=== PATIENT | female | born 1955 | race Caucasian/White ===

== ENCOUNTER → 2021-03-04 12:18 | Outpatient (CLI) | payer MEDICARE, SELFPAY ==
--- NOTE | ~2021-03-04 | XR_ITS ---
EXAMINATION: XR knee LT 3V DATE: 03/04/2021 12:35 INDICATION: Left knee pain. TECHNIQUE: 3 views of left knee standing were obtained. COMPARISON: None. FINDINGS: Bone alignment is normal. No fracture. Joint spaces are well maintained. There is no knee j oint effusion. IMPRESSION: 1. Normal left knee. Reviewed, dictated and finalized at location A. IMPRESSION: 1. Normal left knee.
== END ==
PROVIDERS: PCP Family Medicine; Visit Provider Nurse Practitioner Family
DX: M25.562 Pain in left knee (principal)
CPT/HCPCS: 73562

== ENCOUNTER → 2021-03-23 12:25 | Outpatient (CLI) | payer MEDICARE, SELFPAY ==
--- NOTE | ~2021-03-23 | XR_ITS ---
XR foot RT min 3V, XR ankle RT min 3V 03/23/2021 13:20 Indication: Right foot and ankle pain after injury Procedure: 4 views right foot and 4 views right ankle Comparison: No prior studies for comparison. Findings: There is a avulsion fracture distal tip of the fibula with adjacent soft tissue swelling. N o other fractures. No foreign bodies. Ankle mortise intact. Talar dome within normal limits. Impression: 1: Avulsion fracture distal tip of the fibula. Reviewed, dictated and finalized at location B. Impression: 1: Avulsion fracture distal tip of the fibula. Impression: 1: Avulsion fracture distal tip of the fibula.
== END ==
PROVIDERS: Visit Provider Family Medicine
DX: S82.831A Other fracture of upper and lower end of right fibula, initial encounter for closed fracture (principal); X58.XXXA Exposure to other specified factors, initial encounter
CPT/HCPCS: 73610; 73630

== ENCOUNTER → 2021-06-02 13:42 | Outpatient (CLI) | payer MEDICARE, SELFPAY ==
--- NOTE | ~2021-06-02 | CT_ITS ---
EXAMINATION:CT lung screening DATE: 06/02/2021 14:01 INDICATION: Personal history of tobacco dependence. Smoker who quit 5 years ago with 40 pack year his tory. TECHNIQUE: Computed tomography (CT) of the chest was performed without intravenous contrast. Automate d exposure control and iterative reconstruction technique were employed. The dose-length product (DLP ) was 144.07 mGy-cm. COMPARISON: Chest CT 08/16/2010 FINDINGS: There is mild emphysema. There is mild symmetric scarring at the lung apices. There is a st able 3 mm nodule in right upper lobe. There is mild atelectasis bilaterally. There are peripheral libby undglass opacities in anterobasal segment right lower lobe. There is a 4 mm nodule in left upper lobe . No pleural effusion. The heart size is normal. There are coronary artery calcifications. No pericar dial effusion. There is mild thoracic spondylosis. IMPRESSION: 1. Lung-RADS category 2: Benign appearance or behavior. Continue annual screening with noncontrast lo w-dose chest CT in 12 months. Reviewed, dictated and finalized at location A. IMPRESSION: 1. Lung-RADS category 2: Benign appearance or behavior. Continue annual screeni ng with noncontrast low-dose chest CT in 12 months.
== END ==
PROVIDERS: PCP Family Medicine; Visit Provider Family Medicine
DX: Z12.2 Encounter for screening for malignant neoplasm of respiratory organs (principal); Z87.891 Personal history of nicotine dependence
CPT/HCPCS: 71271

== ENCOUNTER → 2021-08-17 10:46 | Outpatient (CLI) | payer MEDICARE, SELFPAY ==
--- NOTE | ~2021-08-17 | MM_ITS ---
EXAMINATION: MM screening [facility] BI w maday HISTORY: Screening mammogram TECHNIQUE: Craniocaudal and mediolateral oblique 3-D tomosynthesis images were obtained and synthetic 2-D images were generated. CAD analysis was submitted and interpreted. COMPARISON: 08/02/2013, 04/12/2012 BREAST PARENCHYMAL COMPOSITION: There are scattered areas of fibroglandular density. FINDINGS: RIGHT BREAST: There is no evidence of suspicious mass, calcification, or architectural distortion to suggest malignancy. There has been no significant interval change. LEFT BREAST: An asymmetry is present in the anterior third of the inner breast 3.5 cm from the nipple on the craniocaudal view IMPRESSION: 1. Left breast asymmetry on the craniocaudal view 2. Additional mammographic views and possible breast ultrasound are recommended. BI-RADS Category 0: Incomplete: Needs additional imaging evaluation. Reviewed, dictated and finalized at location A. EMS SUPPORT SPECIALIST IMPRESSION: 1. Left breast asymmetry on the craniocaudal view 2. Additional mammographic views and possible breast ultrasound are recommended . BI-RADS Category 0: Incomplete: Needs additional imaging evaluation.
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
== END ==
PROVIDERS: PCP Family Medicine; Visit Provider Family Medicine
DX: Z12.31 Encounter for screening mammogram for malignant neoplasm of breast (principal); Z78.0 Asymptomatic menopausal state; R92.8 Other abnormal and inconclusive findings on diagnostic imaging of breast
CPT/HCPCS: 77063; 77067; 77080

== ENCOUNTER → 2021-09-15 08:49 | Outpatient (CLI) | payer MEDICARE, SELFPAY ==
--- NOTE | ~2021-09-15 | MM_ITS ---
EXAMINATION: MM diagnostic sukhdev LT w maday HISTORY: Left breast asymmetry reported on 08/17/2021 screening mammogram craniocaudal view TECHNIQUE: Additional 3-D tomosynthesis images of the left breast were performed and synthetic 2-D im ages were generated. Rolled medial and rolled lateral craniocaudal views of left breast. CAD analysis was submitted and interpreted. COMPARISON: 08/17/2021, 08/02/2013 bilateral screening mammogram examinations FINDINGS: The area of asymmetry reported in the anterior inner left breast on 08/17/2021 screening ma mmogram is not confirmed on these subsequent views, consistent with normal fibroglandular stroma. IMPRESSION: 1. No mammographic evidence of malignancy 2. Routine mammographic screening is recommended. BI-RADS Category 1: Negative Reviewed, dictated and finalized at location A. CREW MEMBER
== END ==
PROVIDERS: PCP Family Medicine; Visit Provider Nurse Practitioner Family
DX: R92.8 Other abnormal and inconclusive findings on diagnostic imaging of breast (principal)
CPT/HCPCS: 77061; 77065; G0279

== ENCOUNTER 2021-12-16 13:50 | Outpatient (CLI) | payer MEDICARE, SELFPAY ==
--- NOTE | ~2021-12-16 | US_ITS ---
US arterial ankle brachial ind INDICATION: Peripheral vascular disease TECHNIQUE: Segmental pressures and plethysmographic and Doppler waveforms of the brachial and lower e xtremity arteries were obtained. COMPARISON: None. FINDINGS: Right and left brachial artery pressures of 105 mm Hg and 101 mm Hg, respectively, are concordant (no rmal difference <= 30 mmHg). The right ankle-brachial index (ERIC) is 1.13 (normal >= 0.9-1.0). The right great toe-brachial index (TBI) is 0.92 (normal >= 0.60). The left ERIC is 1.12. The left TBI is 0.59. IMPRESSION: 1. Normal bilateral ankle-brachial indices. Reviewed, dictated and finalized at location B.
== END 2021-12-16 13:51 | disposition home or self-care (01) ==
LOC: ANHIMG 13:53
PROVIDERS: PCP Family Medicine; Visit Provider Family Medicine
DX: I73.9 Peripheral vascular disease, unspecified (principal)
CPT/HCPCS: 93922

== ENCOUNTER → 2022-08-22 12:41 | Outpatient (CLI) | payer MEDICARE, SELFPAY ==
--- NOTE | ~2022-08-22 | CT_ITS ---
EXAMINATION: CT lung screening DATE: 08/22/2022 12:56 INDICATION: Lung cancer screening. TECHNIQUE: Computed tomography (CT) of the chest was performed without intravenous contrast. The dose -length product was 118.23 mGy-cm. Automated exposure control and iterative reconstruction technique were employed. COMPARISON: CT dated 06/02/2021 FINDINGS: There is atherosclerosis of the aorta. No evidence for aneurysm. There is atherosclerosis o f the coronary arteries. No significant pleural or pericardial effusion. No thoracic lymphadenopathy. The upper abdomen is unremarkable. There is apical pleural thickening/scarring. There is mild emphys cynthia. There are right upper lobe nodules which are stable, largest measuring 4 mm. There is a stable 4 mm left upper lobe nodule, image 27. There is a 3 mm right lower lobe nodule, image 98, unchanged. N o endobronchial lesions. No peripheral airspace consolidation. No pneumothorax. No endobronchial lesi ons. No acute osseous abnormality. IMPRESSION: 1. Lung-RADS category 2: Benign appearance or behavior. Continue annual screening with noncontrast lo w-dose chest CT in 12 months. Reviewed, dictated and finalized at location B. WASHER PREPARER IMPRESSION: 1. Lung-RADS category 2: Benign appearance or behavior. Continue annual screeni ng with noncontrast low-dose chest CT in 12 months.
== END ==
PROVIDERS: PCP Family Medicine; Visit Provider Family Medicine
DX: Z12.2 Encounter for screening for malignant neoplasm of respiratory organs (principal); Z87.891 Personal history of nicotine dependence
CPT/HCPCS: 71271

== ENCOUNTER → 2023-03-08 16:01 | Outpatient (CLI) | payer MEDICARE, SELFPAY ==
--- NOTE | ~2023-03-08 | MM_ITS ---
EXAMINATION: MM screening [facility] BI w maday HISTORY: Screening mammogram TECHNIQUE: Craniocaudal and mediolateral oblique 3-D tomosynthesis images were obtained and synthetic 2-D images were generated. CAD analysis was submitted and interpreted. COMPARISON: 09/15/2021, 08/17/2021, 08/02/2013 BREAST PARENCHYMAL COMPOSITION:There are scattered areas of fibroglandular density. FINDINGS: No suspicious mass, calcification, or architectural distortion are identified in either kathleen ast to suggest malignancy. There has been no suspicious interval change. IMPRESSION: No mammographic evidence of malignancy. Recommend routine screening mammography in one year. BI-RADS Category 1: Negative Reviewed, dictated and finalized at location .
== END ==
PROVIDERS: PCP Family Medicine; Visit Provider Family Medicine
DX: Z12.31 Encounter for screening mammogram for malignant neoplasm of breast (principal)
CPT/HCPCS: 77063; 77067

== ENCOUNTER 2023-04-21 11:20 | Outpatient (CLI) | payer MEDICARE, SELFPAY ==
[2023-04-21 12:29] LABS: Thyroid Stimulating Hormone 0.945 uIU/mL (0.465-4.680)
== END 2023-04-21 11:21 | disposition home or self-care (01) ==
PROVIDERS: PCP Family Medicine; Visit Provider Nurse Practitioner Family
DX: R53.83 Other fatigue (principal)
CPT/HCPCS: 36415; 82607; 84443

== ENCOUNTER 2023-05-24 08:14 | Outpatient (CLI) | payer MEDICARE, SELFPAY ==
--- NOTE | 2023-06-08 19:43 | WPDHOMESLEEP ---
Sleep Study - Home Unattended Date of Study: 05/24/23 Ordering Provider: Donte Walton APRN Interpreting Provider: Hansa Lucas MD Home Sleep Study Type: Watch PAT Height: 1.7 m Weight: 79.832 kg Body Mass Index: 27.6 Neck Circumference (inches): 14.5 [place]: 3 Reason for Sleep Study Witnessed apnea, history of obstructive sleep apnea on CPAP, has not used it recently; now 177 lb * 12/09/2002 ?Basic sleep study; sleep efficiency 97%; sleep latency 2.5 minutes; REM latency 93 minutes; Arousal index of 12.5. Findings of upper airway resistance syndrome. A CPAP titration is recommended. * 03/31/2003 ? titration to CPAP [id number]; wt was 168lbs. Sleep History Brenda Shah is a 68-year-old female with complaints of loud snoring. She has hypertension, diastolic dysfunction, depression and acid reflux. She has a history of obstructive sleep apnea, had a titration in 2002 with an optimal pressure of 10 cm. Her weight was 168 lb now 177 lb.. She does not awaken from sleep feeling short of breath. She rarely awakens at night with heartburn, belching or coughing. She rarely snores but when she does snore, others frequently complain about it. she occasionally has difficulty sleeping with a cold. She does not wake up gasping for breath at night. She frequently has breathing problems at night observed by others. She occasionally sweats excessively at night. She does not notice her heart pounding or beating irregularly at night. She occasionally falls asleep during the day, never falls asleep involuntarily or while driving. She does not have loss of muscle tone with strong emotion. She occasionally has daytime difficulties due to excessive sleepiness. She does not feel paralyzed on waking or falling asleep. She frequently has vivid dreamlike scenes upon awakening or falling asleep. She does not feel afraid to go to sleep. She occasionally has nightmares. She occasionally remembers her dreams. She occasionally has racing thoughts. She occasionally feels sad, depressed, anxious. She rarely has muscular tension. She rarely notices parts of her body jerking. She occasionally kicks at night. She denies having feelings of aching or crawling feelings in her legs. She does not have any kind of leg pain at night. She occasionally has morning jaw pain. She occasionally grinds her teeth at night. She is not bothered by pain during the day. She occasionally is awakened by pain at night and occasionally wakes up feeling stiff in the morning. She frequently wakes up with sore achy muscles and pain in the neck and spine. She has memory problems, concentration difficulties and she takes antacids regularly. Normal bedtime is 9:00 p.m. taking 1/2 hour to fall asleep typically waking 3 times at night. While awake, she goes to the bathroom and let her dog outside. She is able to return to sleep in a few minutes. She wakes the morning by 6:00 a.m.. She keeps the same schedule on weekends. She estimates getting 8 hours of sleep at night. She sometimes takes naps in the afternoon or evening. A short nap is not refreshing. She is usually drowsy for an hour upon waking. She feels better in the afternoon compared to other times of day. She never awakens feeling refreshed. She reports 40 lb weight loss in the last year. Habits: Quit tobacco 8 years ago. She drinks 6 servings of caffeine per day. No alcohol or recreational substances. [facility] Past Medical History Medical History (Updated 06/08/23 @ 20:04 by Hansa Lucas MD) Anxiety disorder Cervical cancer Depression Gastroesophageal reflux disease Hyperlipidemia Hypertension IBS (irritable bowel syndrome) Motion sickness Surgical History Surgical History H/O: hysterectomy partial 2004? Family History Family History Mother , heart attack - 52 Family history
[2023-06-08 20:03] VITALS: BMI 27.6
== END 2023-05-25 10:38 | disposition home or self-care (01) ==
PROVIDERS: PCP Family Medicine; Visit Provider Nurse Practitioner Family
DX: G47.33 Obstructive sleep apnea (adult) (pediatric) (principal); E78.5 Hyperlipidemia, unspecified; I10 Essential (primary) hypertension; Z85.41 Personal history of malignant neoplasm of cervix uteri; Z87.891 Personal history of nicotine dependence
CPT/HCPCS: 95800

== ENCOUNTER 2023-06-21 08:38 | Outpatient (CLI) | payer MEDICARE, SELFPAY ==
--- NOTE | 2023-07-10 17:05 | WPDSLEEPSTUD ---
Sleep Study Date of Study: 06/21/23 Ordering Provider: Donte Walton APRN Interpreting Physician: Eve Starkey, Sleep Study Type: CPAP Titration Height: 1.7 m Weight: 78.471 kg Body Mass Index: 27.1 Neck Circumference (inches): 14.5 [place]: 3 Reason for Sleep Study WatchPAT on 05/24/2023 showed an overall AHI of 5.7 with desaturation down to 80%. She had a central apnea index of 1.1 with 10 central apneas. Sleep History Brenda Shah is a 68-year-old female with complaints of? loud snoring.? She has hypertension, diastolic dysfunction, depression and acid reflux.? She has a history of obstructive sleep apnea, had a titration in 2002 with an optimal pressure of 10 cm.? Her weight was 168 lb now 177 lb..? She does not awaken from sleep feeling short of breath.? She rarely awakens at night with heartburn, belching or coughing.? She rarely snores but when she does snore, others frequently complain about it.? she occasionally has difficulty sleeping with a cold.? She does not wake up gasping for breath at night.? She frequently has breathing problems at night observed by others.? She occasionally sweats excessively at night.? She does not notice her heart pounding or beating irregularly at night.? She occasionally falls asleep during the day, never falls asleep involuntarily or while driving.? She does not have loss of muscle tone with strong emotion.? She occasionally has daytime difficulties due to excessive sleepiness.? She does not feel paralyzed on waking or falling asleep.? She frequently has vivid dreamlike scenes upon awakening or falling asleep.? She does not feel afraid to go to sleep.? She occasionally has nightmares.? She occasionally remembers her dreams.? She occasionally has racing thoughts.? She occasionally feels sad, depressed, anxious.? She rarely has muscular tension.? She rarely notices parts of her body jerking.? She occasionally kicks at night.? She denies having feelings of aching or crawling feelings in her legs.? She does not have any kind of leg pain at night.? She occasionally has morning jaw pain.? She occasionally grinds her teeth at night.? She is not bothered by pain during the day.? She occasionally is awakened by pain at night and occasionally wakes up feeling stiff in the morning.? She frequently wakes up with sore achy muscles and pain in the neck and spine.? She has memory problems, concentration difficulties and she takes antacids regularly. Normal bedtime is 9:00 p.m. taking 1/2 hour to fall asleep typically waking 3 times at night.? While awake, she goes to the bathroom and let her dog outside.? She is able to return to sleep in a few minutes.? She wakes the morning by 6:00 a.m..? She keeps the same schedule on weekends.? She estimates getting 8 hours of sleep at night.? She sometimes takes naps in the afternoon or evening.? A short nap is not refreshing.? She is usually drowsy for an hour upon waking.? She feels better in the afternoon compared to other times of day. ? She never awakens feeling refreshed.? ? She reports 40 lb weight loss in the last year. Habits:? ? Quit tobacco 8 years ago.? She drinks 6 servings of caffeine per day.? No alcohol or recreational substances. [facility] Past Medical History Medical History Anxiety disorder Cervical cancer Depression Gastroesophageal reflux disease Hyperlipidemia Hypertension IBS (irritable bowel syndrome) Motion sickness Surgical History Surgical History H/O: hysterectomy partial 2004? Family History Family History Mother , heart attack - 52 Family history of diabetes mellitus in first degree relative Coronary artery disease Cerebrovascular accident Heart disease Father , lung cancer - 76 Family history of lung cancer Sibling , Brother - 4
[2023-07-10 17:18] VITALS: BMI 27.1
== END 2023-06-22 07:21 | disposition home or self-care (01) ==
LOC: ANHCSM 08:39
PROVIDERS: PCP Family Medicine; Visit Provider Nurse Practitioner Family
DX: G47.33 Obstructive sleep apnea (adult) (pediatric) (principal)
CPT/HCPCS: 95811

== ENCOUNTER 2023-09-14 13:10 | Outpatient (CLI) | payer MEDICARE, SELFPAY ==
--- NOTE | ~2023-09-14 | CT_ITS ---
EXAMINATION: CT lung screening DATE: 09/14/2023 13:24 INDICATION: Personal history of nicotine dependence, prior smoker with 40 pack year history TECHNIQUE: Computed tomography (CT) of the chest was performed without intravenous contrast. The dose -length product (DLP) was 120.19 mGy-cm. Automated exposure control and iterative reconstruction tech [employer] [place] were employed. COMPARISON: 08/22/2022 FINDINGS: There is mild emphysema. Stable nodules of the right upper lobe measure up to 4 mm. There i s a stable 3 mm nodule of the right lower lobe (image 99). There is a new 1.5 cm nonsolid nodule of t he left upper lobe (image 35). No pathologically enlarged thoracic lymph nodes are identified. The he art size is normal. Calcified coronary artery atherosclerosis is noted. Subendocardial fat deposition in the left ventricular apex and intraventricular septum is consistent with prior myocardial infarct ion. There is mild thoracic spondylosis. IMPRESSION: 1. Lung-RADS category 2: Benign appearance or behavior. Continue annual screening with noncontrast lo w-dose chest CT in 12 months. Reviewed, dictated and finalized at location L. ARCH DEVELOPMENT DIRECTOR IMPRESSION: 1. Lung-RADS category 2: Benign appearance or behavior. Continue annual screeni ng with noncontrast low-dose chest CT in 12 months.
== END 2023-09-14 13:11 ==
LOC: MICIMG 13:10
PROVIDERS: PCP Family Medicine; Visit Provider Family Medicine
DX: Z12.2 Encounter for screening for malignant neoplasm of respiratory organs (principal); Z87.891 Personal history of nicotine dependence
CPT/HCPCS: 71271

== ENCOUNTER 2024-03-11 10:28 | Outpatient (CLI) | payer MEDICARE, SELFPAY ==
--- NOTE | ~2024-03-11 | MM_ITS ---
EXAMINATION: MM screening [facility] BI w maday HISTORY: Screening TECHNIQUE: Craniocaudal and mediolateral oblique 3-D tomosynthesis images were obtained and synthetic 2-D images were generated. CAD analysis was submitted and interpreted. COMPARISON: Comparison to multiple prior studies sequentially, with oldest reviewed study dated 08/02. BREAST PARENCHYMAL COMPOSITION: Not dense: There are scattered areas of fibroglandular density. FINDINGS: There is no evidence of suspicious mass, calcification, or architectural distortion to sugg est malignancy in either breast. There has been no suspicious interval change. IMPRESSION: 1. No mammographic evidence of malignancy. 2. Recommend routine screening mammography in one year. BI-RADS Category 1: Negative Reviewed, dictated and finalized at location B.
== END 2024-03-11 10:29 ==
LOC: MICIMG 10:29
PROVIDERS: PCP Family Medicine; Visit Provider Family Medicine
DX: Z12.31 Encounter for screening mammogram for malignant neoplasm of breast (principal)
CPT/HCPCS: 77063; 77067

== ENCOUNTER 2024-07-17 12:31 | Outpatient (CLI) | payer MEDICARE, SELFPAY ==
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
== END 2024-07-17 12:32 | disposition home or self-care (01) ==
LOC: MICIMG 12:33
PROVIDERS: Visit Provider Psychiatry & Neurology Neurology
DX: Z87.828 Personal history of other (healed) physical injury and trauma (principal); R93.0 Abnormal findings on diagnostic imaging of skull and head, not elsewhere classified
CPT/HCPCS: 70551

== ENCOUNTER 2024-09-20 12:26 | Outpatient (CLI) | payer MEDICARE, SELFPAY ==
--- NOTE | ~2024-09-20 | CT_ITS ---
CT Scan of the Chest without Contrast: Clinical Indication: Lung cancer screening, nicotine dependence COMPARISON: 09/14/2023 Technique: Contiguous sections were acquired throughout the chest without intravenous contrast. Dose reduction technique was used on this scan by utilizing automated exposure control and iterative recon struction technique. The dose-length product (DLP) was 118.42 mGy-cm. Findings: There is no evidence of any significant mediastinal, hilar or axillary lymphadenopathy. Coronary skip ry calcifications are present. There is no evidence of pleural or pericardial effusion. Stable 3 mm right basilar pulmonary nodule (axial image 96). Images through the upper abdomen reveal no abnormalities. Impression: Lung RADS 2: Benign appearance. 12 month follow-up screening CT advised. Reviewed, dictated and finalized at location . STIVE TECHNOLOGY SPECIALIST Impression: Lung RADS 2: Benign appearance. 12 month follow-up screening CT advised.
== END 2024-09-20 12:27 | disposition home or self-care (01) ==
LOC: MICIMG 12:28
DX: Z12.2 Encounter for screening for malignant neoplasm of respiratory organs (principal); Z87.891 Personal history of nicotine dependence
CPT/HCPCS: 71271

== ENCOUNTER 2025-02-13 11:30 | Outpatient (CLI) | payer MEDICARE, SELFPAY ==
--- NOTE | ~2025-02-13 | XR_ITS ---
Lumbosacral Spine: AP and lateral views Clinical History: Rheumatoid arthritis Findings: There is mild dextroscoliosis of the lumbar spine. There is grade 1 retrolisthesis of L4 ov er L5. There is advanced degenerative disc narrowing at L3-L4 and L5-S1. There is severe facet arthro jace throughout the lumbar spine. The sacroiliac joints are normally outlined. Impression: Moderate to advanced degenerative spondylosis, as above. Dextroscoliosis. Grade 1 retrolisthesis of L4 over L5. Reviewed, dictated and finalized at location M. Impression: Moderate to advanced degenerative spondylosis, as above. Dextroscoliosis. Grade 1 retrolisthesis of L4 over L5.
--- NOTE | ~2025-02-13 | XR_ITS ---
Left Hand Technique: PA and lateral views were obtained. Clinical History: Rheumatoid arthritis Findings: No acute fracture or dislocation is seen. There is moderate to advanced degenerative change at the first CMC joint. Joint spaces are preserved. Soft tissues are unremarkable. Impression: Moderate to advanced degenerative change at the first CMC joint. Reviewed, dictated and finalized at [facility]. Impression: Moderate to advanced degenerative change at the first CMC joint.
--- NOTE | ~2025-02-13 | XR_ITS ---
Left foot Technique: AP and lateral views were obtained. Clinical History: Rheumatoid arthritis Findings: No acute fracture or dislocation is seen. Osseous alignment is anatomic. Joint spaces are p reserved without erosive or degenerative change. Soft tissues are unremarkable. Impression: Unremarkable left foot radiographs. Reviewed, dictated and finalized at location . Impression: Unremarkable left foot radiographs.
--- NOTE | ~2025-02-13 | XR_ITS ---
AP and oblique views of the SI joints CLINICAL HISTORY: Rheumatoid arthritis FINDINGS: No fracture or dislocation seen. Joint spaces are intact. No erosive change or sclerosis. S oft tissues are unremarkable. IMPRESSION: Unremarkable exam. Reviewed, dictated and finalized at location M. IMPRESSION: Unremarkable exam.
--- NOTE | ~2025-02-13 | XR_ITS ---
Right foot Technique: AP and lateral views were obtained. Clinical History: Rheumatoid arthritis Findings: No acute fracture or dislocation is seen. Osseous alignment is anatomic. Joint spaces are p reserved without erosive or degenerative change. Soft tissues are unremarkable. Impression: Unremarkable right foot radiographs. Reviewed, dictated and finalized at location . Impression: Unremarkable right foot radiographs.
--- NOTE | ~2025-02-13 | XR_ITS ---
Right Hand Technique: PA and lateral views were obtained. Clinical History: Rheumatoid arthritis Findings: No acute fracture or dislocation is seen. Prior trapezium resection with orthopedic hardwar e at the bases of the first and second metacarpals. Soft tissues are unremarkable. Impression: No evidence for erosive arthropathy. Postoperative changes at the base of the thumb, as detailed above. Reviewed, dictated and finalized at location M. Impression: No evidence for erosive arthropathy. Postoperative changes at the base of the thumb, as detailed above.
== END 2025-02-13 11:31 | disposition home or self-care (01) ==
LOC: MICIMG 11:31
PROVIDERS: PCP Internal Medicine; Visit Provider Internal Medicine
DX: M43.16 Spondylolisthesis, lumbar region (principal); M41.86 Other forms of scoliosis, lumbar region; M47.816 Spondylosis without myelopathy or radiculopathy, lumbar region; M47.817 Spondylosis without myelopathy or radiculopathy, lumbosacral region; M18.12 Unilateral primary osteoarthritis of first carpometacarpal joint, left hand; M06.9 Rheumatoid arthritis, unspecified
CPT/HCPCS: 72110; 72202; 73120; 73620

== ENCOUNTER 2025-05-08 12:48 | Outpatient (CLI) | payer MEDICARE, SELFPAY ==
--- OUTSIDE RECORDS SUMMARY | 2025-05-08 12:52 | XMS_ITS | Clinical Summary ---
Author Organization [facility] [place] [address] Address [address] [place] [address] Care Team Providers Care Carrier Operator Name Role Phone Nathalie Park MD Primary Care Provider + Allergies No known active allergies Medications venlafaxine XR (EFFEXOR-XR) 150 mg 24 hr capsule Take 1 capsule (150 mg total) by mouth daily 1 8 Active diazePAM (VALIUM) 5 mg tablet Take 1 tablet by mouth as needed. 0 8 Active ARIPiprazole (ABILIFY) 2 mg tablet Take 1 tablet (2 mg total) by mouth daily 0 8 Active omeprazole (PriLOSEC) 20 mg capsule Take 1 capsule (20 mg total) by mouth daily Active valACYclovir (VALTREX) 1 gram tablet valacyclovir 1 gram tablet TAKE 1 TABLET BY MOUTH EVERY 12 HOURS FOR 7 DAYS Active ALPRAZolam (XANAX) 1 mg tablet alprazolam 1 mg tablet TAKE 1 TABLET BY MOUTH THREE TIMES DAILY Active primidone (MYSOLINE) 250 mg tablet Take 1 tablet (250 mg total) by mouth nightly 4 Active propranolol LA (INDERAL LA) 80 mg 24 hr capsule Take 1 capsule (80 mg total) by mouth daily 4 Active magnesium citrate 100 mg tablet Take by mouth Active rosuvastatin (CRESTOR) 20 mg tablet Take 1 tablet (20 mg total) by mouth nightly 90 tablet 3 5 Active Active Problems Problem Noted Date Diagnosed Date Low back pain 05/16/2013 Overview (01/04/2017): Low back pain Gastroesophageal reflux disease 12/19/2012 Overview (01/05/2017): GERD (gastroesophageal reflux disease) Benign hypertension 08/16/2008 Overview (01/06/2017): Hypertension, benign Secondary polycythemia 08/16/2004 Overview (01/04/2017): Polycythemia secondary to smoking Mixed anxiety depressive disorder 08/16/2003 Overview (01/04/2017): Anxiety and depression Hyperlipidemia 08/16/2003 Overview (01/05/2017): Hyperlipidemia Irritable bowel syndrome 08/16/2003 Overview (01/06/2017): Irritable bowel syndrome Obstructive sleep apnea syndrome 12/09/2002 Overview (01/05/2017): CHUCK (obstructive sleep apnea) History of malignant neoplasm of cervix 08/16/19 98 Overview (01/06/2017): History of cervical cancer Tobacco dependence syndrome 08/16/1969 Overview (01/05/2017): Tobacco abuse Immunizations Immunization Administration Dates Next Due Influenza, Split 08/16/2013 Pneumococcal Polysaccharide PPV23 08/16/2013 Tdap 08/16/2013 Surgical History Surgery Date Site/Laterality Comments HYSTERECTOMY Hysterectomy OTHER SURGICAL HISTORY section 1979, 1981 SECTION x2 Medical History Medical History Date Comments Anxiety disorder Anxiety Irritable bowel syndrome Irritab le bowel disease Depression Depression Gastroesophageal reflux disease GERD Hypertension Hypertension Hyperlipidemia Hyperlipidemia Sleep apnea Motion sickness Cancer (HCC) Cervical cancer (HCC) hysterecto my Family History Medical History Relation Name Comments Cancer Father Cancer -unknown ; Lung cancer; Cause of : Cancer -unknown Diabetes Father Diabetes mellit us; Coronary artery disease Mother Gely nary artery disease, premature; Cause of : Coronary artery disease, premature Diabetes Mother Diabetes mellit us; Stroke Mother Stroke; Hypertension Other 1 Family history of Hypertension; Migraines Other 2 Family history of Migraines; Relation Name Status Comments Father (Age 77) Mother (Age 52) Other 1 Other 2 Social History Tobacco Use Types Packs/Day Years Used Date Smoking Tobacco: Former Smokeless Tobacco: Never Tobacco Cessation:Counseling Given: Not Answered Comments:Does not smoke cigarettes (quit in 2013), vapes daily at this time. 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 Gender Identity Female 02/21/2024 8:52 AM CDT Sexual Orientation Straight 02/21/2024 8: 52 AM CDT Obstetrics History Last Filed Vital Signs Vital Sign Reading Time Taken Comments Blood Pressure 124/80 02/28/2024 8:38 AM CDT Pulse 68 02/28/2024 8:38 AM CDT Temperature 37.3 C (99.2 F) 05/18/2018 3:00 PM CDT Respiratory Rate 20 05/18/2018 3:51 PM CDT Oxygen Saturation 99% 02/28/2024 8:38 AM CDT Inhaled Oxygen Concentration - - Weight 87.6 kg (193 lb 3.2 oz) 02/28/2024 8:38 A M CDT Height 170.2 cm (5' 7) 02/28/2024 8:38 AM CDT Body Mass Index 30.26 02/28/2024 8:38 AM CDT Plan of Treatment Health Maintenance Due Date Last Done Comments Breast Cancer Screening-Mammogram 1955 Colon Cancer Screening-Colonoscopy 1955 Depression Screening 1955 Fall Risk Assessment 1955 Hepatitis C Screening 1955 Osteoporosis Screening-Bone Density Scan 1955 Hepatitis B Screening 02/05/1974 Zoster Vaccine (1 of 2) 02/05/2006 Well Visit 65+ 02/05/2021 Pneumococcal vaccine 65+ (2 of 2 - PCV) 07/10/2022 07/10/2021, 08/16/2013 DTaP/Tdap/Td Vaccine (2 - Td or Tdap) 08/16/2023 Covid-19 Vaccine ( season) 06/02/202404/2022, 04/02/2021 Influenza Vaccine (#1) 2025 , 07/22/2020, 08/16/2013 Medical Devices Implanted Type Area Sheet Sorter Device Identifier Shelf Expiration Date Model / Serial / Lot Pedius 850-300 Lynx Advantage Sling Handle Center Tab Needle Suprapubic - [id number] Implanted:Qty: 1 on 05/18/2018 by Gopal Dueans MD at [facility] N/A: Urethra Veodin Evonne 11/16/2018 850-300 / / [id number] Insurance MEDICARE ADVANTAGE [employer] MEDICARE ADVANTAGE Care Teams Carrier Operator Relationship Specialty Start Date End Date Nathalie Park MD [address] [place] [address] PCP - General Family Medicine 12/29/21
--- OUTSIDE RECORDS SUMMARY | 2025-05-08 12:52 | XMS_ITS | Clinical Summary ---
Author Organization [facility] Address [address] [place] [id number] Care Team Providers Care Computer Repairer Name Role Phone Unavailable Primary Care Provider Unavailabl e Social History Tobacco Use Types Packs/Day Years Used Date Smoking Tobacco: Never Assessed Comments Unknown Sex and Gender Information Value Date Recorded Sex Assigned at Not on file Legal Sex Female 8:23 PM CDT Gender Identity Not on file Sexual Orientation Not on file Plan of Treatment Health Maintenance Due Date Last Done Comments Colorectal Cancer Screening Colonoscopy (10 Years) 1955 Hepatitis C 02/05/1974 DTaP, Tdap and Td Vaccines ( 1 - Tdap) 02/05/1975 Mammogram Screening 1996 Pneumococcal Vaccine: 50+ Ye ars (1 of 1 - PCV) 02/05/2006 Zoster Vaccines (1 of 2) 02/05/2006 Dexa Scan (General) 02/05/2021 COVID-19 Vaccine ( - 2023-2 5 season) 2024 RSV Immunization or 60+ Years (1 - 1-dose 75+ series) 02/05/2031 Meningococcal B Vaccine Aged Out No l onger eligible based on patient's age to complete this topic Meningococcal Vaccine Aged Out No mariajose patricia eligible based on patient's age to complete this topic RSV Immunizations Under 20 Months Aged Out No longer eligible based on patient's age to complete this topic
--- NOTE | 2025-05-08 16:45 | NEURO_ITS ---
Clinical note: Patient is 70-year-old female with history pain in the lower back and numbness and history of falls no history of diabetes mellitus. Under brief examination no focal weakness or fasciculations were seen. Details of the nerve conduction study and EMG are in close. Summary of findings: 1. Left and right peroneal and tibial motor distal latencies amplitudes and conduction velocities were within normal limits. 2. Left and right medial plantar sensory distal latencies are prolonged and a amplitude of moderate decreased on the right and normal on the left side. Conduction velocity was decreased. Left and right sural sensory distal latencies were normal however amplitudes moderately decreased and conduction velocity is also decreased. 3. Left and right H reflex latencies were normal however amplitudes were significantly decreased right more than left side . 4. EMG examination was performed wears various muscles in El 3 to S1 distribution examined including related gluteal and paraspinal muscles. Denervation changes were seen. Motor unit amplitude, duration and recruitment pattern were within normal limits. Impression: EMG and nerve conduction study is supportive diagnosis of mild diffuse sensory, length-dependent, axonal polyneuropathy. Clinical an etiologic correlation is recommended There is no supportive evidence for L3-S1 radiculopathy at this time. Bhumi Ibrahim MD, FAAN, FAANEM Neurology / electrodiagnostic Medicine Nerve Conduction Studies Motor Nerve Results ? Latency Amplitude F-Lat Segment Distance CV Comment Site (ms) (mV) (ms) (cm) (m/s) Left Peroneal (EDB) Motor Ankle 4.9 2.8 Bel Fib Head 11.4 2.8 Bel Fib Head-Ankle 310 48 Pop Fossa 12.8 2.8 Pop Fossa-Bel Fib Head 75 54 Right Peroneal (EDB) Motor Ankle 4.3 3.3 Bel Fib Head 10.9 2.9 Bel Fib Head-Ankle 270 41 Pop Fossa 12.1 2.9 Pop Fossa-Bel Fib Head 80 67 Left Tibial (AHB) Motor Ankle 3.4 12.9 Knee 13.6 7.4 Knee-Ankle 405 40 Right Tibial (AHB) Motor Ankle 3.8 3.8 Knee 13.1 2.9 Knee-Ankle 410 44 Sensory Nerve Results ? Latency (Peak) Amplitude (P-P) Segment Distance CV Comment Site (ms) (?V) (cm) (m/s) Left Medial Plantar (Ortho) Sensory Great Toe-Med Mall 4.3 11 Great Toe-Med Mall 100 23 Right Medial Plantar (Ortho) Sensory Great Toe-Med Mall 5.1 5 Great Toe-Med Mall 110 22 Left Sural Sensory Calf-Lat Mall 3.5 3 Calf-Lat Mall 120 34 Right Sural Sensory Calf-Lat Mall 3.3 7 Calf-Lat Mall 120 36 H-Reflex Results ? M-Lat H Lat H Peak-Peak Amp M Peak-Peak Amp H-M Lat Site (ms) (ms) mV mV (ms) Left Tibial H-Reflex Pop Fossa - 33.7 1.04 - - Right Tibial H-Reflex Pop Fossa 6.8 33.3 0.19 0.18 26.5 Electromyography ?Side Muscle Nerve Ins Act Fibs Psw Amp Dur Recrt Comment Right BicepsFemS Sciatic Nml Nml Nml Nml Nml Nml Right Semimembranosus Sciatic Nml Nml Nml Nml Nml Nml Right AntTibialis Dp Br Fibular Nml Nml Nml Nml Nml Nml Right Gastroc Tibial Nml Nml Nml Nml Nml Nml Right VastusMed Femoral Nml Nml Nml Nml Nml Nml Right RectFemoris Femoral Nml Nml Nml Nml Nml Nml Right GluteusMax InfGluteal Nml Nml Nml Nml Nml Nml Right TensorFascLat SupGluteal Nml Nml Nml Nml Nml Nml Left BicepsFemS Sciatic Nml Nml Nml Nml Nml Nml Left Semimembranosus Sciatic Nml Nml Nml Nml Nml Nml Left AntTibialis Dp Br Fibular Nml Nml Nml Nml Nml Nml Left Gastroc Tibial Nml Nml Nml Nml Nml Nml Left VastusMed Femoral Nml Nml Nml Nml Nml Nml Left RectFemoris Femoral Nml Nml Nml Nml Nml Nml Left GluteusMax InfGluteal Nml Nml Nml Nml Nml Nml Left TensorFascLat SupGluteal Nml Nml Nml Nml Nml Nml Left L4 Parasp Rami Nml Nml Nml Nml Nml Nml Right L4 Parasp Rami Nml Nml Nml Nml Nml Nml Left L5 Parasp Rami Nml Nml Nml Nml Nml Nml Right L5 Parasp Rami Nml Nml Nml Nml Nml Nml
== END 2025-05-08 12:49 | disposition home or self-care (01) ==
PROVIDERS: PCP Internal Medicine; Visit Provider Psychiatry & Neurology Neurology
DX: E11.9 Type 2 diabetes mellitus without complications (principal); G62.9 Polyneuropathy, unspecified
CPT/HCPCS: 95886; 95910

== ENCOUNTER 2025-09-22 11:27 | Outpatient (CLI) | payer MEDICARE, SELFPAY ==
--- NOTE | ~2025-09-22 | MM_ITS ---
EXAMINATION: MM screening sukhdev BI w maday HISTORY: Screening. TECHNIQUE: Craniocaudal and mediolateral oblique 3-D tomosynthesis images were obtained and synthetic 2-D images were generated. CAD analysis was submitted and interpreted. COMPARISON: 2023, 2022, and 2020 BREAST PARENCHYMAL COMPOSITION: Not Dense: There are scattered areas of fibroglandular tissue FINDINGS: No suspicious masses are seen. There are no suspicious calcifications. No unexplained architectural distortion is seen. There are no skin or nipple abnormalities identified. There is no adenopathy seen on the images submitted. IMPRESSION: No mammographic evidence to suggest malignancy is seen. The patient may return to screening mammography as per ACR guidelines. BI-RADS 1 - Negative. Reviewed, dictated and finalized at location A. OR MACHINE FEEDER
--- NOTE | ~2025-09-22 | CT_ITS ---
EXAMINATION:CT lung screening DATE: 09/22/2025 12:02 INDICATION: Personal history of nicotine dependence. TECHNIQUE: Computed tomography (CT) of the chest was performed without intravenous contrast. Automated exposure control and iterative reconstruction technique were employed. The dose-length product (DLP) was 146.84 mGy-cm. COMPARISON: Chest CT 09/20/2024 FINDINGS: There is mild emphysema. There is mild scarring at the lung apices. There are multiple scattered nodules in the lungs measuring up to 4 mm, stable from 09/20/2024. No pleural effusion. The heart size is normal. There are coronary artery calcifications. No pericardial effusion. There is mild thoracic spondylosis. IMPRESSION: 1. Lung-RADS category 2: Benign appearance or behavior. Continue annual screening with noncontrast low-dose chest CT in 12 months. Reviewed, dictated and finalized at location E. GER COMPLETIONS IMPRESSION: 1. Lung-RADS category 2: Benign appearance or behavior. Continue annual screeni ng with noncontrast low-dose chest CT in 12 months.
== END 2025-09-22 11:28 | disposition home or self-care (01) ==
LOC: MICIMG 11:29
DX: Z12.31 Encounter for screening mammogram for malignant neoplasm of breast (principal); Z12.2 Encounter for screening for malignant neoplasm of respiratory organs; Z87.891 Personal history of nicotine dependence
CPT/HCPCS: 71271; 77063; 77067